=== PATIENT | female | born 1985 | race Asian ===

== ENCOUNTER 2017-04-24 16:56 | Emergency (ER) | payer OTHER ==
[~2017-04-24] VITALS: Ht 160 cm; Wt 64.0 kg
[2017-04-24] MEDS ORDERED: FAMOTIDINE 20MG/2ML VIAL IV ONE (17:30)
[2017-04-24] MEDS ORDERED: METHYLPREDNISOLONE SOD SUCC 125 MG/2 ML VIAL IV ONE (17:30)
[2017-04-24] MEDS ORDERED: EPINEPHRINE 1:1000 1 MG/ML AMP INJ ONE (17:30)
[2017-04-24] MEDS ORDERED: DIPHENHYDRAMINE 50MG/ML VIAL IV ONE (17:30)
[2017-04-24 18:47] VITALS: BP 109/69
== END 2017-04-24 19:08 | disposition home or self-care (01) ==
LOC: ER 18:33
DX: T78.2XXA Anaphylactic shock, unspecified, initial encounter (principal); Y92.89 Other specified places as the place of occurrence of the external cause
CPT/HCPCS: 96372; 96374; 96375; 99291; J0171; J2930; J3490